=== PATIENT | female | born 1990 | race Caucasian/White ===

== ENCOUNTER 2019-04-04 16:55 | Emergency (ER) | payer OTHER ==
[~2019-04-04] VITALS: Ht 172.7 cm; Wt 70.3 kg
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
--- NOTE | 2019-04-04 17:33 | NUR ---
XRAY AT BEDSIDE
--- NOTE | 2019-04-04 18:36 | NUR ---
Patient discharged to home in stable condition. Written and verbal after care instructions given. Patient verbalizes understanding of instruction.
[2019-04-04 18:37] VITALS: BP 127/81
== END 2019-04-04 18:38 | disposition home or self-care (01) ==
LOC: ER 17:01
DX: S52.692A Other fracture of lower end of left ulna, initial encounter for closed fracture (principal); F17.200 Nicotine dependence, unspecified, uncomplicated; Z98.890 Other specified postprocedural states; Y00.XXXA Assault by blunt object, initial encounter; Y93.01 Activity, walking, marching and hiking; Y92.488 Other paved roadways as the place of occurrence of the external cause; Y99.8 Other external cause status
CPT/HCPCS: 29125; 73090; 99283; 99406; L3763

== ENCOUNTER 2019-04-05 09:36 | Emergency (ER) | payer OTHER ==
[~2019-04-05] VITALS: Ht 167.6 cm; Wt 67.1 kg
--- NOTE | 2019-04-05 09:45 | NUR ---
AT BEDSIDE FOR EVAL.
--- NOTE | 2019-04-05 09:54 | NUR ---
APatient discharged to home in stable condition. Written and verbal after care instructions given. Patient verbalizes understanding of instruction. Pt ambulatory with a steady gait
[2019-04-05 09:56] VITALS: BP 135/75
== END 2019-04-05 09:58 | disposition home or self-care (01) ==
LOC: ER 09:39
DX: S52.692D Other fracture of lower end of left ulna, subsequent encounter for closed fracture with routine healing (principal); Z98.890 Other specified postprocedural states; Y08.89XD Assault by other specified means, subsequent encounter